=== PATIENT | female | born 1975 | race Caucasian/White ===

== ENCOUNTER 2019-04-19 22:46 | Emergency (ER) | payer MEDICAID ==
[~2019-04-19] VITALS: Ht 170.2 cm; Wt 93.9 kg
[~2019-04-19 22:46] MED LIST: LISI-420 PO; ORE25 PO
[2019-04-19 22:56] VITALS: BP 126/81
--- NOTE | 2019-04-19 23:06 | NUR ---
PT AMBULATED TO BED 1
--- NOTE | 2019-04-19 23:24 | NUR ---
PT.SEEN AND EXAMINED BY ER-MD.
[2019-04-19] MEDS ORDERED: diphenhydrAMINE 50 MG/ML VIAL IM ONE (23:30)
[2019-04-19] MEDS ORDERED: PROCHLORPERAZINE 10 MG/2 ML VIAL IM ONE (23:30)
--- NOTE | 2019-04-19 23:41 | NUR ---
BENADRYL 50 MG IM AND COMPAZINE 10 MG IM GIVEN ORDERED.
--- NOTE | 2019-04-19 23:49 | NUR ---
URINE HCG DONE AND IS NEGATIVE.
--- NOTE | 2019-04-20 00:39 | NUR ---
Patient discharged with v/s stable. Written and verbal after care instructions given and explained. Patient alert, oriented and verbalized understanding of instructions. Ambulatory with steady gait. All questions addressed prior to discharge. ID band removed. Patient advised to follow up with PMD. Rx of Compazine and benadryl given. Patient educated on indication of medication including possible reaction and side effects. Opportunity to ask questions provided and answered.
== END 2019-04-20 00:39 | disposition home or self-care (01) ==
LOC: MED 22:46
DX: G44.009 Cluster headache syndrome, unspecified, not intractable (principal); E11.9 Type 2 diabetes mellitus without complications; I10 Essential (primary) hypertension; Z79.899 Other long term (current) drug therapy
CPT/HCPCS: 70450; 81025; 96372; 99283; J0780; J1200

== ENCOUNTER 2019-11-26 02:22 | Emergency (ER) | payer MEDICAID ==
[~2019-11-26] VITALS: Ht 167.6 cm; Wt 95.3 kg
[2019-11-26 02:30] VITALS: BP 149/80
--- NOTE | 2019-11-26 02:30 | NUR ---
TO BED # 03 AMBULATORY
--- NOTE | 2019-11-26 02:35 | NUR ---
PT 44 Y/O FEMALE BIB SELF FOR C/O HIGH B/P AND HIGH BS. PT STATES SHE WOKE UP FEELING DIAPHORETIC AND NAUSEOUS. PT STATED SHE CHEACK B/P AND BS AND BOTH WERE HIGH. PT STATES SHE ATE A HIGH SALT DINNER AND TOOK 50U OF LANTUS BEFORE BED. PT ADMITS TO FELLINGS OF NAUSEA HAVE DECREASED UPON ARRIVAL. PT DENIES PAIN AT THIS TIME. DENIES COUGH. AFEBILE. RESPIRATIONS ARE EVEN AND UNLABORED. SKIN IS WARM AND DRY TO TOUCH. PT ON MONITOR. AT BEDSIDE. MEDHX: HTN, DM TYPE II ALLERGIES: NKA
--- NOTE | 2019-11-26 02:36 | NUR ---
BS: 330. YISSEL MADE AWARE. NO NEW ORDERS AT THIS TIME.
--- NOTE | 2019-11-26 02:50 | NUR ---
DR. VASQUEZ AT BEDSIDE.
--- NOTE | 2019-11-26 03:30 | NUR ---
LAB AT BEDSIDE.
--- NOTE | 2019-11-26 03:40 | NUR ---
EKG PERFORMED AT BEDSIDE WITH SPOUSE PRESENT
[2019-11-26 03:56] LABS: BASOPHILS % (AUTO) 0.7 % (0.0-2.0); EOSINOPHILS # (AUTO) 0.1 K/uL (0-0.4); EOSINOPHILS % (AUTO) 2.1 % (0.0-4.0); HEMATOCRIT 32.5 % (36-48); HEMOGLOBIN 10.6 g/dL (12.0-16.0); LYMPHOCYTES # (AUTO) 2.1 K/uL (2.5-16.5); LYMPHOCYTES % (AUTO) 33.4 % (20.5-51.1); MEAN CORPUSCULAR HEMOGLOBIN 22 pg (27-31); MEAN CORPUSCULAR HGB CONC 33 g/dL (33-37); MONOCYTES # (AUTO) 0.4 K/uL (0.8-1.0); MONOCYTES % (AUTO) 7.2 % (1.7-9.3); NEUTROPHILS # (AUTO) 3.5 K/uL (1.8-7.7); NEUTROPHILS % (AUTO) 56.6 % (42.2-75.2); PLATELET COUNT (AUTO) 429 K/uL (140-450); RED BLOOD CELL COUNT(AUTO) 4.78 MIL/uL (4.20-5.40); WHITE BLOOD COUNT (AUTO) 6.2 K/uL (4.8-10.8)
[2019-11-26 04:06] LABS: ANION GAP 15.4 (8-16); CARBON DIOXIDE 24.5 mmol/L (21-32); CREATININE 0.8 mg/dL (0.6-1.3); POTASSIUM 3.9 mmol/L (3.5-5.1)
--- NOTE | 2019-11-26 04:38 | NUR ---
PT RESTING IN BED EYES CLOSED. RESPIRATIONS ARE EVEN AND UNLABORED. SKIN IS WARM AND DRY TO TOUCH. VSS. PT ON MONITOR. BED LOCKED AND IN LOWEST POSTION.
--- NOTE | 2019-11-26 05:20 | NUR ---
BS: 304. YISSEL MADE AWARE. GAVE NEW ORDER FOR HUMALIN R 5U SQ.
[2019-11-26] MEDS ORDERED: INSULIN REGULAR, HUMAN 100 UNIT/ML VIAL SUBQ ONE ×2 (05:30→05:50)
--- NOTE | 2019-11-26 06:02 | NUR ---
PT RESTING IN BED EYES CLOSED. PT RESPONDS TO VERBAL STIMULI. PT AAO X4. RESPIRATIONS ARE EVEN AND UNLABORED. SKIN IS WARM AND DRY TO TOUCH. VSS. PT ON MONITOR. BED LOCKED AND IN LOWEST POSTION.
--- NOTE | 2019-11-26 06:15 | NUR ---
BS: 293. JUDITD MADE AWARE. NO NEW ORDERS AT THIS TIME.
[2019-11-26 06:20] VITALS: BP 132/78
--- NOTE | 2019-11-26 06:20 | NUR ---
Patient discharged with v/s stable. Written and verbal after care instructions given and explained. Patient verbalized understanding. Ambulatory with steady gait. All questions addressed prior to discharge. Advised to follow up with PMD.
== END 2019-11-26 06:20 | disposition home or self-care (01) ==
LOC: MED 02:22
DX: E11.65 Type 2 diabetes mellitus with hyperglycemia (principal); E83.42 Hypomagnesemia; I10 Essential (primary) hypertension; Z79.899 Other long term (current) drug therapy
CPT/HCPCS: 36415; 80048; 82948; 83036; 83735; 84484; 85025; 93005; 96372; 99284; J1815; 96374

== ENCOUNTER 2020-03-17 23:15 | Emergency (ER) | payer MEDICAID ==
[~2020-03-17] VITALS: Ht 167.6 cm; Wt 92.5 kg
[2020-03-17 23:17] VITALS: BP 166/102
--- NOTE | 2020-03-18 00:46 | NUR ---
PT AMBULATED TO BED 4 WITH STEADY GAIT.
--- NOTE | 2020-03-18 00:50 | NUR ---
PT 44 Y/O FEMALE BIB SELF FOR C/O INCREASED BP AT HOME. PT AAO X4. PT STATES BP AT HOME WAS 160/119. PT ALSO HAS C/O 8/10 SIMPSON AND NAUSEA. PT DENIES HAVING EPISODE OF VOMITING AT THIS TIME. PT STATES SHE IS COMPLIANT WITH MEDICATION BUT ATE HIGH SODIUM FOOD TODAY. PT RESPIRATIONS ARE EVEN AND UNLABORED. PT ON [employer] TEACHER. MEDHX: HTN, HYPERLIPIDEMIA, DM TYPE II ALLERGIES: NKA
[2020-03-18] MEDS ORDERED: KETOROLAC 30 MG/ML VIAL IVP ONE (00:55)
[2020-03-18] MEDS ORDERED: ONDANSETRON 4 MG/2 ML VIAL IVP ONE (00:55)
--- NOTE | 2020-03-18 01:00 | NUR ---
IV PLACED IN L AC 20G. IV PATENT.
--- NOTE | 2020-03-18 01:08 | NUR ---
TORADOL 30MG AND ZOFRAN 4MG GIVEN IVP FOR C/O NAUSEA AND 8/10 PAIN IN HEAD.
--- NOTE | 2020-03-18 01:28 | NUR ---
DR. MCGREGOR AT BEDSIDE. GAVE VERBAL ORDER FOR 1L NS 0.9% BOLUS. PT STATES PAIN REDUCED FROM 8/10 SIMPSON TO 4/10 AND SHE NO LONGER HAS C/O NAUSEA. PT REMAINS ON C SOFTWARE ENGINEER.
[2020-03-18] MEDS ORDERED: NACL 0.9% 1,000 ML IV ONE (01:30)
[2020-03-18] MEDS ORDERED: MORPHINE SULFATE 2 MG/ML SYR IVP ONE (01:30)
--- NOTE | 2020-03-18 01:31 | NUR ---
PT REFUSED MORPHINE MEDICATION FOR PAIN. YISSEL TADEO.
--- NOTE | 2020-03-18 02:15 | NUR ---
IV removed, catheter intact and site benign. Applied folded 4x4 gauze and tape to stop bleeding.
--- NOTE | 2020-03-18 02:16 | NUR ---
Patient discharged with v/s stable. Written and verbal after care instructions given and explained. Patient alert, oriented and verbalized understanding of instructions. Ambulatory with steady gait. All questions addressed prior to discharge. ID band removed. Patient advised to follow up with PMD. Rx of NONE given. Patient educated on indication of medication including possible reaction and side effects. Opportunity to ask questions provided and answered.
[2020-03-18 02:19] VITALS: BP 135/81
== END 2020-03-18 02:17 | disposition home or self-care (01) ==
LOC: MED 23:15
DX: I10 Essential (primary) hypertension (principal); G44.009 Cluster headache syndrome, unspecified, not intractable; R42 Dizziness and giddiness; E11.9 Type 2 diabetes mellitus without complications; Z79.899 Other long term (current) drug therapy
CPT/HCPCS: 96361; 96374; 96375; 99284; J1885; J2270; J2405; J7030

== ENCOUNTER 2021-02-16 07:41 | Emergency (ER) | payer MEDICAID ==
[~2021-02-16] VITALS: Ht 167.6 cm; Wt 96.6 kg
[~2021-02-16 07:41] MED LIST changes: +HYDR-4004 PO; -LISI-420 PO; +LISI-487 PO; -ORE25 PO
[2021-02-16 07:43] VITALS: BP 161/110
[2021-02-16] MEDS ORDERED: SCOPOLAMINE 1.5 MG/72 HR PATCH TD STA (07:48)
[2021-02-16] MEDS ORDERED: ONDANSETRON 4 MG/2 ML VIAL IVP ONE (07:50)
[2021-02-16] MEDS ORDERED: NACL 0.9% 1,000 ML IV ONE (07:50)
[2021-02-16 08:04] LABS: BASOPHILS % (AUTO) 0.8 % (0.0-2.0); EOSINOPHILS # (AUTO) 0.1 K/uL (0-0.4); EOSINOPHILS % (AUTO) 2.3 % (0.0-4.0); HEMATOCRIT 31.1 % (36-48); HEMOGLOBIN 9.9 g/dL (12.0-16.0); LYMPHOCYTES # (AUTO) 1.6 K/uL (2.5-16.5); LYMPHOCYTES % (AUTO) 35.7 % (20.5-51.1); MEAN CORPUSCULAR HEMOGLOBIN 23 pg (27-31); MEAN CORPUSCULAR HGB CONC 32 g/dL (33-37); MEAN CORPUSCULAR VOLUME 72.9 fL (80-94); MONOCYTES # (AUTO) 0.3 K/uL (0.8-1.0); MONOCYTES % (AUTO) 5.6 % (1.7-9.3); NEUTROPHILS # (AUTO) 2.6 K/uL (1.8-7.7); NEUTROPHILS % (AUTO) 55.6 % (42.2-75.2); PLATELET COUNT (AUTO) 428 K/uL (140-450); RED BLOOD CELL COUNT(AUTO) 4.27 MIL/uL (4.20-5.40); RED CELL DISTRIBUTION WIDTH 15.9 % (11.6-13.7); WHITE BLOOD COUNT (AUTO) 4.6 K/uL (4.8-10.8)
[2021-02-16 08:23] LABS: ALBUMIN 3.6 g/dL (3.4-5.0); CARBON DIOXIDE 26.3 mmol/L (21-32); CREATININE 0.6 mg/dL (0.6-1.3); POTASSIUM 4.3 mmol/L (3.5-5.1); TOTAL BILIRUBIN 0.2 mg/dL (0.0-1.0)
[2021-02-16] MEDS ORDERED: FERR325E14 PO (08:55)
[2021-02-16] MEDS ORDERED: SCOP1PAT TP (08:55)
[2021-02-16] MEDS ORDERED: DOCU-299 PO (08:55)
[2021-02-16] MEDS ORDERED: ONDA-24 SL (08:55)
[2021-02-16 09:14] VITALS: BP 124/69
== END 2021-02-16 09:15 | disposition home or self-care (01) ==
LOC: MED 07:41
DX: R42 Dizziness and giddiness (principal); D50.9 Iron deficiency anemia, unspecified; E11.65 Type 2 diabetes mellitus with hyperglycemia; I10 Essential (primary) hypertension
CPT/HCPCS: 36415; 80053; 84702; 85025; 93005; 96361; 96374; 99284; J2405; J7030